=== PATIENT | male | born 1990 | race Caucasian/White ===

== ENCOUNTER 2023-08-31 03:22 | Inpatient (IN) | payer SELFPAY ==
[2023-08-31] VITALS (9 sets, daily range): BP systolic 132–162; BP diastolic 80–105; PULSE 91–116; RESP 15–20; TEMP 36.4–36.7; O2SAT 95–98; BMI 25.7
--- NOTE | 2023-08-31 03:50 | ECG_ITS ---
[facility] Test Date: 2023-08-31 Pat Name: Robert Godinez Department: Room: 153 Gender: Male [employer] Dipper: : 1990 Requested By: Miller Pickering Order Number: [id number] Landon MD: Aggie Bergman M.D. Measurements Intervals [place] Rate: 90 P: 46 MT: 157 QRS: 5 QRSD: 108 T: 31 QT: 357 QTc: 439 Interpretive Statements SINUS RHYTHM No previous ECG available for comparison Electronically Signed On 08-31-2023 16:27:41 CDT by Aggie Bergman M.D. [id number]
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
[2023-08-31 04:03] LABS: Basophils # 0.1 10^3/uL (0.0-0.1); Basophils % 0.7 %; Eosinophils # 0.3 10^3/uL (0.0-0.8); Eosinophils % 2.6 %; Hematocrit 45.6 % (37-53); Lymphocytes # 4.6 10^3/uL (0.8-4.8); Lymphocytes % 43.4 %; Mean Corpuscular HGB Conc 33.3 g/dL (30-55); Mean Corpuscular Hemoglobin 30.5 pg (27-33); Mean Corpuscular Volume 91.4 fl (82-101); Mean Platelet Volume 9.8 fL (7.4-10.4); Monocytes # 0.5 10^3/uL (0.2-0.9); Monocytes % 4.6 %; Neutrophils # 5.11 10^3/uL (1.8-7.7); Neutrophils % 48.1 %; Nucleated Red Blood Cells % 0 %; Platelet Count 249 10^3/cmm (157-399); Red Blood Count 4.99 10^6/uL (3.85-5.65); Red Cell Distribution Width 12.5 % (12.1-15.1); White Blood Count 10.62 10^3/uL (3.29-11.43)
[2023-08-31 04:24] LABS: Acetaminophen < 5.0 ug/mL (10-30); Alanine Aminotransferase 37 U/L (0-41); Albumin Level 4.7 g/dL (3.5-5.2); Alcohol Level 178 mg/dL (0-10); Alkaline Phosphatase 93 U/L (40-130); Anion Gap 17.1 (5-19); Aspartate Amino Transferase 22 U/L (0-40); Blood Urea Nitrogen 8 mg/dL (6-20); Calcium 9.4 mg/dL (8.5-10.5); Carbon Dioxide 25 mmol/L (22-29); Chloride 99 mmol/L (98-107); Globulin 3.4 g/dL (1.3-4.6); Glomerular Filtration Rate 132.4 mL/min (90-130); Glucose 108 mg/dL (65-115); Osmolality Calculated 285 mOsm/kg (285-295); Potassium 3.1 mmol/L (3.5-5.1); Salicylate < 0.3 mg/dL (3-10); Sodium 138 mmol/L (136-145); Total Bilirubin 0.2 mg/dL (0.15-1.2); Total Protein 8.1 g/dL (6.6-8.7)
[2023-08-31 04:35] LABS: Add Urine Microscopic? NO; Charge for UA Resulting for Rev
[2023-08-31 04:39] LABS: Bilirubin Urine Neg (Negative); Blood Urine Neg (Negative); Glucose Urine UA Norm (Normal); Ketones Urine Negative (Negative); Leukocyte Esterase Urine Negative (Negative); Nitrate Urine Negative (Negative); Protein Urine Neg (Negative); Urine Appearance Clear (CLEAR); Urine Color Colorless (Yellow); Urobilinogen Urine Neg (Negative); pH Urine 6 (5-7)
[2023-08-31 04:47] LABS: Amphetamines Screen Urine Negative (Negative); Barbiturates Screen Urine Negative (Negative); Benzodiazepines Screen Urine Negative (Negative); Cocaine Screen Urine Negative (Negative); Opiate Screen Urine Negative (Negative); PCP Screen Urine Negative (Negative); THC Screen Urine Negative (Negative)
--- NOTE | 2023-08-31 09:53 | PC.NURSE ---
During mornig assessment, patient calm and cooperative. patient denies all. Patient denies all. Patient stated to this nurse that he was depressed in his home town of [place], [place], that there is a dark cloud hanging over that town and its people. Patient stated that he has been sober from alcohol for three months, but that he had a step back last night when he decided to drink.
[2023-08-31] MEDS: multivitamin therapeutic Tablet 1 TAB PO (10:58)
[2023-08-31] MEDS: folic acid 1 mg Tablet PO (10:58)
[2023-08-31] MEDS: thiamine 100 mg Tablet PO (10:58)
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
[2023-08-31] MEDS: sertraline 50 mg Tablet 25 MG PO (18:39)
[2023-09-01 06:00] VITALS: BP 146/87; PULSE 69; RESP 18; TEMP 36.3; O2SAT 96
[2023-09-01] MEDS: thiamine 100 mg Tablet PO (08:00)
[2023-09-01] MEDS: multivitamin therapeutic Tablet 1 TAB PO (08:00)
[2023-09-01] MEDS: folic acid 1 mg Tablet PO (08:00)
[2023-09-01] MEDS: sertraline 50 mg Tablet 25 MG PO (08:00)
[2023-09-01 13:37] VITALS: BP 166/89; PULSE 106; RESP 14; TEMP 36.9; O2SAT 96
--- NOTE | 2023-09-01 16:39 | W.PM.NPUPNS ---
Subjective NPU Subjective: 32-year-old white male with major depressive disorder generalized anxiety disorder and significant alcohol use admitted with suicidal ideation. Patient had reported continued depressed mood. He reported continued feelings of helplessness. He had reported that his suicidal thoughts were less frequent. He had isolated himself on the milieu. He reported no side effects from his medications. He had endorsed improved sleep last night. He had reported continued stress at home. He reported that he was motivated to consider alcohol treatment and reported feeling relieved that he would return back to his brother's home upon discharge. He had reported significant triggers to the use of alcohol and his local area. Mental Status Exam MSE Comments: He is a friendly cooperative male with a slightly alysa complexion who appeared his stated age. He was alert and oriented to person place time and situation. His gait appeared steady. His hygiene was fair. There was no evidence of any abnormal involuntary motor movements tics or tremors appreciated. His speech was normal in regards to rate rhythm and prosody. His mood remained depressed. His affect was mood congruent and restricted in range. There was evidence of moderate psychomotor retardation. His thought process was linear logical and goal-directed. His thought content showed no evidence of homicidal ideation. He had endorsed suicidal ideation with confirmation of his plan to overdose. There was no clear evidence of delusional thinking. He did not appear to be responding to internal stimuli. His attention span was poor. His recent and remote memory were grossly intact. His insight is poor. His judgment was poor. His impulse control appeared limited. Vitals/I&O/Wt Last Vital Signs Temp 98.4 F 09/01/23 13:37 Pulse 106 H 09/01/23 13:37 Resp 14 09/01/23 13:37 BP 166/89 09/01/23 13:37 Pulse Ox 96 09/01/23 13:37 O2 Del Method Room Air 09/01/23 13:37 Weight last 48 hrs Weight 83.461 kg Data NPU 08/31/23 03:35 08/31/23 03:35 A&P Assessment and plan (1) Major depressive disorder, recurrent: (2) DAVID (generalized anxiety disorder): (3) Alcohol abuse: Plan 32-year-old white male with alcohol abuse admitted after suicide attempt and reports of chronic depression and anxiety. 1. ?Encourage individual, group and milieu therapy. 2. Recommend sober living treatment at the highest level of care to which the patient is willing to commit. 3. Continue q-15 minute checks for safety.? CIWA protocol 4. Increase zoloft to 50mg daily to target depression and anxiety. Involuntary Hold Information 96 Hour Hold: 96 Hour Involuntary Admission: No Attestations NPU Medical Necessity Statement*: Inpatient hospitalization is medically necessary and deemed to be the clinically appropriate intervention at this time. medications will be initiated and adjusted accordingly. The patient's likely length of stay is 3 to 4 days. Coding Level of Care Code Acute Code for [facility] Diagnoses Major depressive disorder, recurrent F33.9 DAVID (generalized anxiety disorder) F41.1 Alcohol abuse F10.10
[2023-09-01 19:22] VITALS: BP 170/92; PULSE 81; RESP 18; TEMP 36.9; O2SAT 95
--- NOTE | 2023-09-01 21:29 | PC.NURSE ---
IN DAY ROOM WATCHING TV NO DISTRESS NOTED. PT DENIES PAIN, DENIES SI/HI AND AVH AT THIS TIME. PT REPORTS ANXIETY 0/10 AND DEPRESSION 0/10. PT STATED HE STARTED DRINKING AND FELT GUILTY AND IT GOT THE BETTER OF ME BUT I AM NOT GOING TO DRINK ANYMORE. PT WAS ENCOURAGED AND GIVEN RESOURCES IN THE COMMUNITY TO ASSIST WITH SUBSTANCE ISSUE. ALL QUESTIONS ANSWERED AND SUPPORT VOICED.
[2023-09-02 06:00] VITALS: BP 135/75; PULSE 68; RESP 16; TEMP 36.6; O2SAT 95
[2023-09-02] MEDS: sertraline 50 mg Tablet 25 MG PO ×2 (08:24→16:22)
[2023-09-02] MEDS: folic acid 1 mg Tablet PO (08:24)
[2023-09-02] MEDS: thiamine 100 mg Tablet PO (08:24)
[2023-09-02] MEDS: multivitamin therapeutic Tablet 1 TAB PO (08:25)
[2023-09-02 13:58] VITALS: BP 146/77; PULSE 60; RESP 16; TEMP 36.7; O2SAT 96
--- NOTE | 2023-09-02 15:04 | W.PM.NPUPNS ---
Subjective NPU Subjective: 32-year-old white male with major depressive disorder generalized anxiety disorder and significant alcohol use admitted with suicidal ideation. Patient had reported feeling somewhat better. He had reported no alcohol related withdrawal symptoms. He had reported having chronic problems with anxiety. He continued to endorse depression but stated that he was feeling more optimistic and reported having good support from his brother While residing there.. Patient had reported continued depressed mood. He reported continued feelings of helplessness. He had reported having less frequent thoughts of suicide. He reported some sleep continuity disruption. Mental Status Exam MSE Comments: He is a friendly cooperative male with a slightly alysa complexion who appeared his stated age. He was alert and oriented to person place time and situation. His gait appeared steady. His hygiene was fair. There was no evidence of any abnormal involuntary motor movements tics or tremors appreciated. His speech was normal in regards to rate rhythm and prosody. His mood described as a little better. His affect remained flat. There was evidence of mild psychomotor retardation. His thought process was linear logical and goal-directed. His thought content showed no evidence of homicidal ideation. He had endorsed passive suicidal ideation with no active plan. There was no clear evidence of delusional thinking. He did not appear to be responding to internal stimuli. His attention span was fair. His recent and remote memory were grossly intact. His insight is improving. His judgment was poor. His impulse control appeared limited. Vitals/I&O/Wt Last Vital Signs Temp 98.0 F 09/02/23 13:58 Pulse 60 09/02/23 13:58 Resp 16 09/02/23 13:58 BP 146/77 09/02/23 13:58 Pulse Ox 96 09/02/23 13:58 O2 Del Method Room Air 09/02/23 13:58 Weight last 48 hrs Weight 122.073 kg Data NPU 08/31/23 03:35 08/31/23 03:35 A&P Assessment and plan (1) Major depressive disorder, recurrent: (2) DAVID (generalized anxiety disorder): (3) Alcohol abuse: Plan 32-year-old white male with alcohol abuse admitted after suicide attempt and reports of chronic depression and anxiety. 1. ?Encourage individual, group and milieu therapy. 2. Recommend sober living treatment at the highest level of care to which the patient is willing to commit. 3. Continue q-15 minute checks for safety.? CIWA protocol 4. Continue zoloft to 50mg daily to target depression and anxiety. Involuntary Hold Information 96 Hour Hold: 96 Hour Involuntary Admission: No Attestations NPU Medical Necessity Statement*: Inpatient hospitalization is medically necessary and deemed to be the clinically appropriate intervention at this time. medications will be initiated and adjusted accordingly. The patient's likely length of stay is 1-2 days. Coding Level of Care Code Acute Code for [facility] Fwd Diagnoses Major depressive disorder, recurrent F33.9 DAVID (generalized anxiety disorder) F41.1 Alcohol abuse F10.10
[2023-09-02] MEDS: neomycin-poly-bacitracin oint 28 gm 1 APPLIC TOPICAL (16:23)
--- NOTE | 2023-09-02 18:31 | PC.NURSE ---
Patient was cooperative with care this shift. He has been interacting with other patients and watching tv for the majority of this shift. CIWA scores have been 0 today. Patient states he only drank once after a long cessation of alcohol over the last several months. He denies withdrawal symptoms when cessation of alcohol in the past. Extensive education regarding symptoms of alcoholism and treatment. Patient verbalized understanding. Patient denies SI/HI/AVH, depression and anxiety.
[2023-09-02 21:04] VITALS: BP 158/93; PULSE 66; RESP 18; TEMP 36.7; O2SAT 96
--- NOTE | 2023-09-02 21:16 | PC.NURSE ---
IN ROOM PT STATES HE SHOULD BE DISCHARGING TOMORROW. PT SHOWS INSIGHT TO RELAPSING AND DESIRE TO STOP DRINKING FOR GOOD THIS TIMEL. PT WAS EDUCATED ABOUT NA AND AA GROUPS IN THE AREA AND SUPPORT GROUPS/NA BASED PROGRAMS IN THE AREA. PT APPEARED EAGER TO ENGAGE IN THESE ACTIVITIES AND PROGRAMS ONCE DISCHARGED. PT DENIES SI/HI AND AVH AT THIS TIME. DECLINES PRN MEDS. RATES DEPRESSION 0/10 AND ANXIETY 0/10. CIWA 0. CIWA DISCONTINUED DUE TO PT NOT SCORING. ALL QUESTIONS ANSWERED AND SUPPORT VOICED. DENIES PAIN.
[2023-09-03 06:00] VITALS: BP 134/81; PULSE 76; RESP 18; TEMP 36.6; O2SAT 97
[2023-09-03] MEDS: sertraline 50 mg Tablet PO (08:25)
[2023-09-03] MEDS: thiamine 100 mg Tablet PO (08:25)
[2023-09-03] MEDS: folic acid 1 mg Tablet PO (08:25)
[2023-09-03] MEDS: multivitamin therapeutic Tablet 1 TAB PO (08:25)
[2023-09-03] MEDS: neomycin-poly-bacitracin oint 28 gm 1 APPLIC TOPICAL (08:26)
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
[2023-09-03 11:09] VITALS: BP 134/81; PULSE 76; RESP 18; TEMP 36.6; O2SAT 97
== END 2023-09-03 12:35 | disposition home or self-care (01) | DRG 885 ==
LOC: ER 04:05 → NP 05:10
PROVIDERS: Admitting Provider Psychiatry & Neurology Psychiatry; Emergency Provider Emergency Medicine; Visit Provider Psychiatry & Neurology Psychiatry
DX: F33.9 Major depressive disorder, recurrent, unspecified (principal); T46.1X2A Poisoning by calcium-channel blockers, intentional self-harm, initial encounter; F10.129 Alcohol abuse with intoxication, unspecified; Y90.6 Blood alcohol level of 120-199 mg/100 ml; Z81.1 Family history of alcohol abuse and dependence; Z81.8 Family history of other mental and behavioral disorders; F41.1 Generalized anxiety disorder
CPT/HCPCS: 36415; 80053; 80306; 80307; 81003; 85025; 93005; 97150; 97165; 99285

== ENCOUNTER → 2023-10-19 10:15 | Outpatient (BNVA) | payer SELFPAY | PROVIDERS: PCP Nurse Practitioner Family; Visit Provider Nurse Practitioner Family | DX: I10 Essential (primary) hypertension (principal) | CPT/HCPCS: 80053 ==

== ENCOUNTER → 2024-03-21 10:28 | Outpatient (BNVA) | payer SELFPAY | PROVIDERS: PCP Nurse Practitioner Family; Visit Provider Nurse Practitioner Family | DX: I10 Essential (primary) hypertension (principal); Z79.899 Other long term (current) drug therapy | CPT/HCPCS: 80053; 80061; 83735; 84443; 85025 ==

== ENCOUNTER → 2024-09-17 11:01 | Outpatient (BNVA) | payer MEDICAID, SELFPAY | PROVIDERS: PCP Nurse Practitioner Family; Visit Provider Nurse Practitioner Family | DX: I10 Essential (primary) hypertension (principal) | CPT/HCPCS: 80053; 80061; 85025 ==